=== PATIENT | male | born 1950 | race Caucasian/White ===

== ENCOUNTER 2018-02-13 13:25 | Inpatient (IN) | payer MEDICARE ==
[2018-02-13 13:49] LABS: #Basophils 0.1 thou/uL (0.0-0.2); #Eosinphils 0.5 thou/uL (0.0-0.7); #Lymphocytes 2.5 thou/uL (1.20-3.40); #Neutrophils 7.6 thou/uL (1.40-6.50); %Basophils 0.9 % (0.0-1.0); %Eosinophils 4.1 % (0.0-10.0); %Lymphocytes 21.6 % (21.0-51.0); %Monocytes 8.1 % (0.0-10.0); %Neutrophils 65.2 % (42.0-75.0); Hemoglobin 17.7 g/dL (14.0-18.0); Mean Corpuscular HGB CONC 34.4 g/dL (32.0-36.0); Mean Corpuscular Hemoglobin 32.8 pg (27.0-31.0); Mean Corpuscular Volume 95.3 fl (80.0-94.0); Mean Platelet Volume 6.8 fL (7.4-10.4); Platelet Count 297 thou/uL (130-400); RBC Distribution Width 11.1 % (11.5-14.5); Red Blood Cell (RBC) Count 5.38 mill/uL (4.70-6.10); White Blood Cell (WBC) Count 11.7 thou/uL (4.8-10.8)
[2018-02-13] MEDS ORDERED: Metoprolol Tartrate 5 MG/5 ML VIAL ONE ×2 (13:51→14:34)
[2018-02-13 14:22] LABS: CKMB 8.8 ng/mL (0-6.6); Troponin I 0.516 ng/mL (< 0.028)
--- NOTE | 2018-02-13 14:25 | RAD ---
PA AND LATERAL CHEST: Date: 02/13/18 HISTORY: Chest pain since this morning. FINDINGS: Heart size is within normal limits. It is difficult to visualize the exact location, but there may be a right-sided aortic arch present. The lungs are clear of infiltrative process. There are arthritic changes of the spine. IMPRESSION: Suggestion that there is a right-sided aortic arch. The stomach appears to be in normal position. POS: [facility]
--- NOTE | 2018-02-13 16:33 | PDOC.FPRHP ---
- History of Present Illness Chief Complaint: Chest pain, SOB History of Present Illness: Jackson Galeas is a 67 year old M with a PMH of HTN and depression who presented to ED from home for acute onset chest pain. Patient is a poor historian because he chooses not to answer many questions and when he does, his answer lack detail. He says the pain is in the center of his chest, initially says he cannot describe the pain, but later states its pressure like. Chest pain occurred Pain was associated with diaphoresis and dizziness at its onset. No nausea, no radiation of pain. No vision changes, headache, pre-syncope, lightheadedness. He states that the pain was improved with the medicines given to him in the ED. He denies any palpitations. He denies any other complaints at this time. States he has a family history of MIs, but stated that he has no history of heart issues. Apparently had a cardiac stress test approximately 3 years ago and that was negative. ED Course: Metoprolol 5mg IVP x2, NS 500mL - Allergies/Adverse Reactions Allergies Allergy/AdvReac Type Severity Reaction Status Date / Time No Known Allergies Allergy Verified 02/13/18 17:42 - Home Medications Medication Instructions Recorded Confirmed Type FLUoxetine HCl 20 mg PO DAILY 02/13/18 02/13/18 History Lisinopril/Hydrochlorothiazide 1 tablet PO DAILY 02/13/18 02/13/18 History [Lisinopril-Hctz 20-12.5 mg Tab] Meloxicam [Mobic] 15 mg PO DAILY 02/13/18 02/13/18 History - History PMHx: HTN, Depression PSHx: No past surgical history FHx: heart disease in father and brother Social: Denies any recent alcohol use, denies drug use, states that he has a history of smoking but does not currently smoke - Review of Systems General: reports: other (diaphoresis). denies: fever/chills, weight/appetite/ sleep changes, night sweats, fatigue Eyes: denies: eye pain, vision changes ENT: denies: nasal congestion, rhinorrhea Respiratory: reports: shortness of breath. denies: cough, congestion, exercise intolerance Cardiovascular: reports: chest pain, palpitation. denies: edema, paroxysmal nocturnal dyspnea, orthopnea Gastrointestinal: denies: nausea, vomiting, diarrhea, constipation, abdominal pain, GI bleeding Genitourinary: denies: dysuria, polyuria Skin: denies: rashes, jaundice Musculoskeletal: denies: pain, stiffness, arthritis/arthralgias Neurological: denies: numbness, syncope, seizure, weakness Psychological: reports: depression. denies: anxiety - Vital signs BP: 116/66 HR: 101 RR: 16 Tmax: 97.6 Pox: 96% on RA Wt: 111Kg - Physical Exam Constitutional: NAD, awake, alert and oriented, well developed HEENT: normocephalic and atraumatic, PERRLA, EOMI, conjunctiva clear, no scleral icterus, grossly normal vision, TM's clear and intact, grossly normal hearing, normal nasal mucosa, MMM, oropharynx clear Neck: supple, FROM, trachea midline, no LAD, no JVD Chest: no-tender to palpation Heart: RRR, normal S1/S2, no murmurs/rubs/gallops, pulses present, no edema Lungs: CTAB, no respiratory distress, good air movement, no rales/rhonchi Abdomen: soft, non-tender, bowel sounds present Musculoskeletal: normal structure, normal tone, ROM grossly normal Neurological: no focal deficit, CN II-XII intact, normal sensation Skin: no rash/lesions, good turgor, capillary refill <2 seconds Heme/Lymphatic: no unusual bruising or bleeding, no purpura, no petechia Psychiatric: intact recent and remote memory -Psychiatric: short-tempered and confrontational FMR H&P: Results - Labs Result Diagrams: 02/13/18 13:43 02/13/18 13:43 Lab results: WBC 11.7 thou/uL (4.8-10.8) H 02/13/18 13:43 Hgb 17.7 g/dL (14.0-18.0) 02/13/18 13:43 Hct 51.3 % (42.0-52.0) 02/13/18 13:43 MCV 95.3 fl (80.0-94.0) H 02/13/18 13:43 Plt Count 297 thou/uL (130-400) 02/13/18 13:43 Neutrophils % 65.2 % (42.0-75.0) 02/13/18 13:43 Creatine Kinase 236 U/L (30-200) H 02/13/18 13:43 CK-MB (CK-2) 8.8 ng/mL (0-6.6) H* 02/13/18 13:43 B-Natriuretic Peptide 88.9 pg/mL (0-100) 02/13/18 13:43 Lipase 34 U/L (8-78) 02/13/18 13:43 - EKG Interpretation EKG: Initial EKG showed atrial fibrillation with rapid ventricular rate of 145, complete RBBB FMR H&P: A/P - Problem List (1) A-fib Current Visit: Yes Status: Acute Code(s): I48.91 - UNSPECIFIED ATRIAL FIBRILLATION (2) NSTEMI (non-ST elevated myocardial infarction) Current Visit: Yes Status: Acute Code(s): I21.4 - NON-ST ELEVATION (NSTEMI) MYOCARDIAL INFARCTION (3) HTN (hypertension) Current Visit: Yes Status: Chronic Code(s): I10 - ESSENTIAL (PRIMARY) HYPERTENSION (4) Elevated blood sugar Current Visit: Yes Status: Acute Code(s): R73.9 - HYPERGLYCEMIA, UNSPECIFIED (5) Transaminitis Current Visit: Yes Status: Acute Code(s): R74.0 - NONSPEC ELEV OF LEVELS OF TRANSAMNS & LACTIC ACID DEHYDRGNSE (6) Mood disorder Current Visit: Yes Status: Chronic Code(s): F39 - UNSPECIFIED MOOD [ AFFECTIVE] DISORDER - Plan (1) New onset Atrial Fibrillation with RVR: - Admit to tele for continuous cardiac monitoring - S/p 2 doses of 5 mg metoprolol in ED achieving control of HR - Cardiology, Dr. Hawley consulted, appreciate recs - Dr. Hawley started pt on diltiazem ggt for HR control (2) NSTEMI - Therapeutic lovenox has been started - Initial troponin was 0.516, second troponin was 3.188 - Discussed rise with Dr. Hawley, stated patient declined cardiac cath, despite recommendation - Will continue medical management with lovenox, asa, and statin - Cardiolyte stress ordered for AM, as well as Echo (3) HTN: - continue to monitor - controlled at this time (4) Elevated blood sugar without diagnosis of DM - Check HgA1c - SSI - accuchecks (5) Mood disorder - Patient appeared short tempered and stated he often has outbursts of anger when initially interviewed patient - Cont home prozac - patient declined sitter CODE STATUS: FULL CODE Disposition/LOS: Admit to Telemetry. Anticipate discharge home after hospital admission likely > 48 hr FMR H&P: Upper Level - Pertinent history Patient is a 67yo CM with PMHx of HTN who presents with chest pain. States it occurred suddenly this AM while working out in the yard. Associated with diaphoresis, shortness of breath and dizziness. Denies any DIEGO, N/V, vision changes. Pt initially presented to PCP but instructed him to go to the ED and take 3 ASA, which he did. ED: metoprolol tartrate 5mg IV x2, 500mL NS bolus - Pertinent findings T 97.6 BP 108/71 HR 142 RR 18 O2 97.6% on RA Wt 111kg Gen: NAD, resting in bed Heart: irregularly irregular Lungs: CTAB Ext: maew Troponin: 0.5163.188 CK-MB: 8.8 22.6 D-dimer: 0.67 BNP: 88.9 EKG: Afib w/ RVR, RBBB CTA: negative - Plan Date/Time: 02/13/18 1631 1. New onset Afib w/ RVR: Patient given 2 doses of metoprolol in the ED with control of heart rate. Dr. Hawley was consulted from the ED and has since started him on dilt gtt with heart rate in the 80s. Continues to remain in afib. Cont to monitor on tele. Cont dilt. 2. NSTEMI: Patient with rising cardiac enzymes though he is asymptomatic and denies any chest pain. Touch based with Dr. Hawley due to acute rise in cardiac enzymes who does not recommend any change in management. Cont therapeutic lovenox. Recommend cardiac cath but pt declined. Thus, plan for stress in the AM. Echo, A1c and FLP panel pending. Cont ASA and statin. 3. HTN: well-controlled. Hold home Lisinopril/hctz. 4. Elevated glucose: obtain A1c. SSI 5. Transaminitis: obtain hep panel. Monitor. 6. Anxiety/Depression/Mood disorder: cont home Prozac 7. Diet: HH/NPO at [place] 8. PPx: th lovenox 9. Code Status: Full I, Carol Dickerson, have evaluated this patient and agree with findings/ plan as outlined by international recruiter resident. Pertinent changes/additions are listed here. Attending Addendum - Attending Addendum Date/Time: 02/13/181929 I personally evaluated the patient and discussed the management with Dr. Aquino and Dr. Dickerson I agree with the History, Examination, Assessment and Plan documented above with any addition or exceptions noted below. 67 yo male admitted for chest pain and found to have a. fib with RVR and NSTEMI vs demand. Patient at present chest pain free. Rate is controlled. Has no other complaints. Cardiology has seen and evaluated patient from ED. Will continue their plans. No ischemic changes noted on EKG. Will trend enzymes and EKG as needed. Treat symptoms. Continue CCB drip and therapeutic Lovenox. Will notify cards of any changes overnight. Lady
[2018-02-13 16:44] LABS: ALT (SGPT) 57 U/L (8-55); AST (SGOT) 39 U/L (5-34); Albumin 4.1 g/dL (3.4-4.8); Alkaline Phosphatase 109 U/L (40-150); Anion Gap 18 mmol/L (10-20); BUN (Urea Nitrogen) 33 mg/dL (8.4-25.7); Bilirubin, Total 0.5 mg/dL (0.2-1.2); Calc. Creatinine Clearance 0 mL/min (70-130); Calcium 9.7 mg/dL (7.8-10.44); Carbon Dioxide 16 mmol/L (23-31); Chloride 105 mmol/L (98-107); Estimated GFR-MDRD 57; Globulin 3.2 g/dL (2.4-3.5); Glucose 245 mg/dL (80-115); Potassium 3.7 mmol/L (3.5-5.1); Protein, Total 7.3 g/dL (5.8-8.1); Sodium 135 mmol/L (136-145)
[2018-02-13] MEDS ORDERED: Ondansetron HCl/PF 4 MG/2 ML Vial IVP PRN (16:57)
[2018-02-13] MEDS ORDERED: Ondansetron ODT 4 MG TAB SL PRN (16:57)
[2018-02-13] MEDS ORDERED: HumaLOG 300 UNITS/3 ML VIAL SC PRN (17:31)
[2018-02-13] MEDS ORDERED: Ondansetron ODT 4 MG TAB PO PRN (17:31)
[2018-02-13] MEDS ORDERED: Acetaminophen 325 MG TAB PO PRN (17:31)
[2018-02-13] MEDS ORDERED: Dextrose 50% Abboject 50 ML SYRINGE SLOW IVP PRN (17:31)
[2018-02-13] MEDS ORDERED: Dextrose 5% in Water 1,000 ML IV PRN (17:31)
--- NOTE | 2018-02-13 17:56 | CT ---
CTA OF THE CHEST WITH CONTRAST 02/13/18 COMPARISON: None. HISTORY: Chest pain. TECHNIQUE: Multiple contiguous axial images were obtained in a CTA of the chest with contrast per pulmonary embo lism protocol. 3D oblique MIP reformats and direct coronal reformats were performed. FINDINGS: The pulmonary arteries are well opacified without filling defects to suggest pulmonary emboli. The he art is normal in size without focal cardiac abnormality. The patient has a right sided aortic arch wh ich courses posterior to the trachea and esophagus. The left internal carotid artery is seen in the a nterior mediastinum. The left subclavian artery emanates from the aorta in the left posterior mediast inum. The right subclavian and common carotid arteries come off the aortic arch along the right near the apex. No focal infiltrates are seen in the lungs. No pneumothorax or pleural effusion are seen. No suspicio us pulmonary nodules are present. The visualized subdiaphragmatic structures are unremarkable. Degenerative changes are seen in the spi ne. IMPRESSION: 1. No evidence of pulmonary thromboembolism. 2. 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 POS: [facility]
[2018-02-13 18:26] LABS: CKMB 22.6 ng/mL (0-6.6); Troponin I 3.188 ng/mL (< 0.028)
[2018-02-13] MEDS ORDERED: Diltiazem 125 MG in Sodium Chloride 0.9% 100 ML IVPB SCH (18:30)
[2018-02-13 18:50] LABS: HBSAB Concentration 0.78 mIU/mL; HBSAg Index 0.17 S/CO (0-0.99); Hep B Surf AB Non-Reactive (NonReactive); Hep B Surf Ag Non-Reactive S/CO (NonReactive)
[2018-02-13] MEDS ORDERED: Enoxaparin Sodium 120 MG/0.8 ML SYRINGE SC SCH (19:00)
[2018-02-13] MEDS: Famotidine 20 MG TAB PO SCH (20:34)
[2018-02-13] MEDS ORDERED: Metoprolol Tartrate 25 MG TAB PO SCH (21:00)
[2018-02-13] MEDS ORDERED: Atorvastatin Calcium 40 MG TAB PO SCH (21:00)
--- NOTE | 2018-02-13 21:13 | CON ---
DATE OF CONSULT: 02/13/18 HISTORY OF PRESENT ILLNESS: The patient is a 67-year-old gentleman who presented with chest pain and palpitations. The patient has no previous cardiac history. He has a strong family history of coronary artery disease. He states he underwent a cardiac evaluation including stress testing approximately 3 years ago, which was unremarkable. The patient was in his usual state of health until today when he developed palpitations and right- sided chest discomfort. He presented to the emergency room with a rapid heart rate. The patient denies having any present chest discomfort. PAST MEDICAL HISTORY: Hypertension. PAST SURGICAL HISTORY: None. SOCIAL HISTORY: Nonsmoker. ALLERGIES: No known drug allergies. FAMILY HISTORY: There is a very strong family history of coronary artery disease. MEDICATIONS: Lisinopril/hydrochlorothiazide 20/12.5 daily, Meloxicam 15 daily, and Prozac 20 daily. REVIEW OF SYSTEMS: Ten-point system otherwise unremarkable. PHYSICAL EXAMINATION: GENERAL: Obese gentleman in no acute distress. VITAL SIGNS: Blood pressure 126/81. NECK: Showed no jugular distention. LUNGS: Clear to auscultation. HEART: Irregular rate and rhythm, normal S1, S2. U/ systolic murmur. ABDOMEN: Distended. EXTREMITIES: Showed trace edema. SKIN: Warm and dry. NEUROLOGIC: Nonfocal. VASCULAR: Radial pulses are 2+. LABORATORY DATA: Sodium 135, potassium 3.7, chloride 105, bicarbonate 16, BUN 33, creatinine 1.26, glucose 245. His white blood count 11.7, hemoglobin 17.7, hematocrit 51.3, platelets are 297. EKG revealed atrial fibrillation with a right bundle branch block, and an ST-T wave abnormality suggestive of ischemia. IMPRESSION: 1. Chest pain. 2. New onset atrial fibrillation. 3. Non-Q-wave myocardial infarction. 4. Obesity. 5. Hyperglycemia. 6. Strong family history of coronary artery disease. This gentleman presents with rapid atrial fibrillation and chest discomfort. His troponin level suggestive non-Q-wave myocardial infarction. With his multiple risk factors, I am concerned he has significant coronary artery disease. I have recommended proceeding to cardiac catheterization. The patient declines and states he prefers to undergo stress testing. The patient will undergo this procedure tomorrow. If there is any evidence of ischemia, I would again highly recommended he proceed with invasive evaluation. The patient will be treated with aspirin, Lovenox, lipid lowering medication. We will check the patient's A1c to see if there is evidence of diabetes. I may recommended the patient undergo electrical cardioversion if he remains in atrial fibrillation. We will follow this patient with you through his hospitalization. Further recommendations to follow. ZEND
[2018-02-13 21:38] LABS: CKMB 27.9 ng/mL (0-6.6); Troponin I 5.918 ng/mL (< 0.028)
[2018-02-14 00:33] LABS: CKMB 28.5 ng/mL (0-6.6); Troponin I 8.725 ng/mL (< 0.028)
--- NOTE | 2018-02-14 00:59 | PDOC.EVN ---
Addendum entered and electronically signed by Cristino Aquino MD 02/14/18 01:13: Correction: Dr. Hawley with cardiology contacted. Original Note: Event Note - Event Note Event Note: Event note for events from 1900 on 02/13/18 to 0100 on 02/14/18: Initial troponin on admission was 0.516. Trended q3h troponins. Troponins continued to rise to 3.188, 5.918, 8.725 Dr. Vences, Cardiology, was contacted after initial trop rise to 3.188. Discussed case with Dr. Vences. He stated that patient had benefits and risks of Cardiac cath explained and patient declined cardiac cath. After second rise to 5.918, stat EKG was ordered and immediately reviewed. EKG showed A fib with rate in 60s. RBBB was unchanged from previous EKGs. There were no new ST changes or signs of ischemia. Patient has denies chest pain since admission. Residents paged after troponin rising to 8.725. RN states that patient has continued to deny any chest pain. Ordered Timed EKG for morning lab draw and also ordered repeat cardiac enzymes for morning draw. Requested that RN page residents if patient ever has recurrence of chest pain that was present on admission. Will continue to follow closely. Patient is scheduled for cardiolyte stress test in the morning. Will continue therapeutic lovenox, aspirin, and statin and continuous cardiac monitoring as recommended by cardiology. <Cristino Aquino - Last Filed: 02/14/18 00:57> Attending Addendum - Attending Addendum Date/Time: 02/14/18 0245 I personally evaluated the patient and discussed the management with Dr. Aquino I agree with the History, Examination, Assessment and Plan documented above with any addition or exceptions noted below. Repeat EKG still without signs of ischemia. Remains pain free. Will continue to monitor for ischemia. Presumed demand at this time with stress in AM unless otherwise indicated by progressive changes. Lady <Janelle Cano - Last Filed: 02/14/18 02:47>
[2018-02-14 05:22] LABS: #Basophils 0.1 thou/uL (0.0-0.2); #Eosinphils 0.5 thou/uL (0.0-0.7); #Lymphocytes 2.7 thou/uL (1.20-3.40); #Monocytes 1.2 thou/uL (0.11-0.59); #Neutrophils 5.4 thou/uL (1.40-6.50); %Eosinophils 5.5 % (0.0-10.0); %Monocytes 11.9 % (0.0-10.0); %Neutrophils 54.6 % (42.0-75.0); Hemoglobin 15.2 g/dL (14.0-18.0); Mean Corpuscular HGB CONC 33.8 g/dL (32.0-36.0); Mean Corpuscular Hemoglobin 32.9 pg (27.0-31.0); Mean Corpuscular Volume 97.5 fl (80.0-94.0); Mean Platelet Volume 7.2 fL (7.4-10.4); Platelet Count 263 thou/uL (130-400); RBC Distribution Width 11.4 % (11.5-14.5); Red Blood Cell (RBC) Count 4.62 mill/uL (4.70-6.10); White Blood Cell (WBC) Count 9.9 thou/uL (4.8-10.8)
[2018-02-14 05:41] LABS: Anion Gap 12 mmol/L (10-20); BUN (Urea Nitrogen) 28 mg/dL (8.4-25.7); Calc. Creatinine Clearance 117 mL/min (70-130); Calcium 8.9 mg/dL (7.8-10.44); Carbon Dioxide 22 mmol/L (23-31); Cardiac Risk 3.8 (Less than 4.5); Chloride 107 mmol/L (98-107); Cholesterol 152 mg/dl (< 200 Desired); Estimated GFR-MDRD 76; Glucose 104 mg/dL (80-115); HDL Cholesterol 40 mg/dL (>60 Neg Risk); LDL Cholesterol, Calculated 92 mg/dL; Magnesium 2.1 mg/dL (1.6-2.6); Phosphorus 3.2 mg/dL (2.3-4.7); Potassium 3.8 mmol/L (3.5-5.1); Sodium 137 mmol/L (136-145); Triglycerides 100 mg/dL (Less than 150)
[2018-02-14 05:44] LABS: CKMB 29.4 ng/mL (0-6.6)
--- NOTE | 2018-02-14 06:29 | PDOC.FM ---
- Subjective Subjective: Patient doing well this AM. No significant overnight events. Patient denies chest pain or shortness of breath this AM. After discussion regarding cath vs. stress test, patient decided he would like to go through with cardiac catheterization. I verified that he would like to proceed with cardiac cath three times during conversation. Dr. Hawley was notified, and there are plans to take pt back to cath this AM. - Objective MAR Reviewed: Yes Vital Signs & Weight: Vital Signs (12 hours) Temp Pulse Resp BP Pulse Ox 02/14/18 04:00 98.4 F 64 18 98/61 96 02/14/18 00:00 86 20 103/53 L 02/13/18 20:00 97.9 F 87 20 111/68 94 L 02/13/18 19:36 98.7 F 94 18 02/13/18 19:12 98.7 F 94 18 136/82 96 Weight Weight 109.316 kg Result Diagrams: 02/14/18 04:34 02/14/18 04:34 EKG Reviewed by me: Yes Radiology Reviewed by me: Yes <Alina Chacon - Last Filed: 02/14/18 09:11> - Objective Vital Signs & Weight: Vital Signs (12 hours) Temp Pulse Resp BP Pulse Ox 02/17/18 08:00 97.5 F L 73 20 118/74 91 L 02/17/18 04:00 98.1 F 76 20 145/86 H 92 L 02/17/18 00:19 93 L 02/17/18 00:00 98.4 F 83 18 145/77 H 92 L Weight Weight 117.571 kg Most Recent Monitor Data Heart Rate from ECG 90 NIBP 132/77 NIBP BP-Mean 124 Respiration from ECG 25 SpO2 92 I&O: 02/16/18 02/17/18 02/18/18 06:59 06:59 06:59 Intake Total 1650 Output Total 2155 1315 Balance -505 -1315 Result Diagrams: 02/17/18 04:37 02/17/18 04:37 <Storm Herman - Last Filed: 02/17/18 09:51> Phys Exam - Physical Examination Constitutional: NAD HEENT: moist MMs, sclera anicteric Neck: supple Respiratory: no wheezing, clear to auscultation bilateral atrial fibrillation Gastrointestinal: soft, no distention Musculoskeletal: no edema, pulses present Neurological: non-focal, moves all 4 limbs Psychiatric: A&O x 3 Deviation from normal: Abrasive Skin: no rash, cap refill <2 seconds <Alina Chacon - Last Filed: 02/14/18 09:11> Dx/Plan (1) NSTEMI (non-ST elevated myocardial infarction) Code(s): I21.4 - NON-ST ELEVATION (NSTEMI) MYOCARDIAL INFARCTION Status: Acute (2) A-fib Code(s): I48.91 - UNSPECIFIED ATRIAL FIBRILLATION Status: Acute (3) Transaminitis Code(s): R74.0 - NONSPEC ELEV OF LEVELS OF TRANSAMNS & LACTIC ACID DEHYDRGNSE Status: Acute (4) Elevated blood sugar Code(s): R73.9 - HYPERGLYCEMIA, UNSPECIFIED Status: Acute (5) HTN (hypertension) Code(s): I10 - ESSENTIAL (PRIMARY) HYPERTENSION Status: Chronic - Plan Plan: (1) New onset Atrial Fibrillation with RVR: - Admit to tele for continuous cardiac monitoring - S/p 2 doses of 5 mg metoprolol in ED achieving control of HR - Cardiology, Dr. Hawley consulted, appreciate recs - Dr. Hawley started pt on diltiazem ggt for HR control - HR controlled over night; still in a-fib (2) NSTEMI: - Therapeutic lovenox has been started - Initial troponin was 0.516, second troponin was 3.188 --> 5.9, 8.7, 8.2; cardiology was called regarding trops, stat EKG did not show any acute changes, pt asymptomatic - Discussed rise with Dr. Hawley, stated patient declined cardiac cath despite recommendation - Will continue medical management with asa and statin - Echo pending - Patient has agreed to have cardiac cath this AM; plans are in place to get pt on schedule; stress test cancelled (3) HTN: - continue to monitor - controlled at this time (4) Elevated blood sugar without diagnosis of DM - HgA1c 6.0 - SSI - accuchecks (5) Mood disorder: - Patient appeared short tempered and stated he often has outbursts of anger when initially interviewed patient - Cont home prozac CODE STATUS: FULL CODE DVT PPX: Th Lovenox Dispo: Pt stable. Plan for cardiac cath this AM. <Alina Chacon - Last Filed: 02/14/18 09:11> Attending Addendum - Attending Addendum Date/Time: 02/17/1851 I personally evaluated the patient and discussed the management with Dr. Chacon on 02/14/2018. I agree with the History, Examination, Assessment and Plan documented above with any addition or exceptions noted below. <Storm Herman - Last Filed: 02/17/18 09:51>
[2018-02-14] MEDS ORDERED: FLUoxetine HCl 20 MG CAP PO SCH (09:00)
[2018-02-14] MEDS ORDERED: Aspirin 325 MG TAB PO SCH (09:00)
[2018-02-14] MEDS: Famotidine 20 MG TAB PO SCH (09:12)
[2018-02-14] MEDS ORDERED: Lidocaine 1% (PF) 30 ML VIAL ONE (09:30)
[2018-02-14] MEDS ORDERED: Heparin 10,000 UNITS/1 ML VIAL ONE (09:30)
[2018-02-14] MEDS ORDERED: Fentanyl 100 MCG/2 ML VIAL ONE (10:14)
[2018-02-14] MEDS ORDERED: Midazolam HCl 2 mg/2 ml Vial ONE (10:14)
[2018-02-14] MEDS ORDERED: Ondansetron HCl/PF 4 MG/2 ML Vial ONE (11:17)
[2018-02-14] MEDS ORDERED: Amiodarone HCl 450 MG, Admixture Fee 1 EACH in Dextrose 5% in Water 250 ML IVPB SCH (11:45)
[2018-02-14] MEDS ORDERED: Heparin 10,000 UNITS/1 ML VIAL 30,000 UNITS in Sodium Chloride 0.9% 1,000 ML FS SCH (13:00)
[2018-02-14] MEDS ORDERED: Fentanyl 250 MCG/5 ML VIAL ONE (13:38)
[2018-02-14] MEDS ORDERED: Midazolam HCl 5 mg/5 ml Vial ONE (13:38)
[2018-02-14] MEDS ORDERED: Sodium Chloride 0.9% 20 ML ONE (13:45)
[2018-02-14] MEDS ORDERED: Cardioplegic Soln 1,000 ML BAG ONE (13:54)
[2018-02-14] MEDS ORDERED: Thrombin 5000 UNITS/5 ML VIAL ONE (13:54)
[2018-02-14] MEDS ORDERED: Glycopyrrolate 0.2 MG/ML 5 ML SYRINGE ONE (13:54)
[2018-02-14] MEDS ORDERED: Papaverine 60 MG/2 ML VIAL ONE (13:54)
[2018-02-14] MEDS ORDERED: Lidocaine 1% PF 5 ML VIAL ONE (13:54)
[2018-02-14] MEDS ORDERED: Calcium Chloride 1 GM/10 ML Abboject SYRINGE ONE (13:54)
[2018-02-14] MEDS ORDERED: Heparin 5,000 UNITS/ML VIAL ONE (13:54)
[2018-02-14] MEDS ORDERED: PROPOFOL 200 MG/20 ML VIAL ONE (13:54)
[2018-02-14] MEDS ORDERED: Sodium Bicarb 50 MEQ/50 ML Abboject 8.4% SYRINGE ONE (13:54)
[2018-02-14] MEDS ORDERED: Vecuronium 10 MG VIAL ONE (13:54)
[2018-02-14] MEDS ORDERED: Heparin 30,000 units/30 ml VIAL ONE (13:54)
[2018-02-14] MEDS ORDERED: Protamine Sulfate 250 MG/25 ML VIAL ONE (13:54)
[2018-02-14] MEDS ORDERED: PHENYLEPHRINE-NS 100 MCG/ML 10 ML SYRINGE ONE ×2 (13:54→15:04)
[2018-02-14] MEDS ORDERED: ePHEDrine/0.9% NaCl/PF SYRINGE 50 mg/10 ml ONE (13:54)
--- NOTE | 2018-02-14 14:09 | CON ---
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 He presented to the emergency department with chest pain, palpitations. His troponin was positive. He suffered a NSTMI. He went into atrial fibrillation after admission. He has been managed on amiodarone and is currently in sinus rhythm with a rate of 55 and a pressure of 138/60. He underwent cardiac catheterization today revealing severe 3-vessel disease. I have been asked to see him to plan coronary artery bypass grafting. PAST MEDICAL HISTORY: Hypertension. PAST SURGICAL HISTORY: None. SOCIAL HISTORY: He does not use tobacco or alcohol. 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 He is and has 2 daughters. CURRENT MEDICATIONS: 1. Lisinopril/hydrochlorothiazide 20/12.5 daily. 2. Meloxicam 15 mg every day. 3. Prozac 20 mg every day. ALLERGIES: None. REVIEW OF SYSTEMS: Ten-point review of systems is performed and is negative except as above. PHYSICAL EXAMINATION: GENERAL: This is a well-developed, well-nourished man resting comfortably in the Intensive Care Unit. VITAL SIGNS: Temperature is 97.7, pulse is 58 and regular, blood pressure 130/ 57, oxygen saturations 100% on room air, height 5 foot 10 inches, weight 241 pounds, BSA is 2.32. HEENT: Sclerae nonicteric. Pupils equal, round bilaterally. NECK: Supple, without adenopathy. No carotid bruit. CHEST: Clear bilaterally. HEART: Rhythm is regular, without murmur. ABDOMEN: Soft and nontender. EXTREMITIES: No edema. VASCULAR: He has palpable carotid, radial, femoral and dorsalis pedis pulses bilaterally. He has an arterial sheath in the right groin. VENOUS: There are no venous varicosities or venous stasis changes. PSYCHIATRIC: The patient is awake, oriented to person, place, and time. Catheterization films have been reviewed. He has significant LAD, diagonal, OM and right coronary artery disease. He has no lung mass on chest x-ray. Lungs are fully expanded. ASSESSMENT AND PLAN: This is a very pleasant 67-year-old gentleman with critical 3-vessel disease and preserved left ventricular function. We discussed coronary artery bypass grafting in an urgent fashion. He is agreeable to proceed. [facility]Jean
[2018-02-14] MEDS ORDERED: Phenylephrine 0.25% Nasal Spray 15 ML BOT ONE (15:03)
[2018-02-14] MEDS ORDERED: Phenylephrine 1% Nasal Spray 15 ML BOT ONE ×2 (15:03)
[2018-02-14] MEDS ORDERED: Iopamidol 370 76% 100 ML VIAL ONE (15:27)
[2018-02-14] MEDS ORDERED: Albumin 5% 500 ML ONE (15:35)
[2018-02-14] MEDS ORDERED: Bisacodyl 5 MG TAB PO PRN (18:14)
[2018-02-14] MEDS ORDERED: Mag-Al 1200 mg/1200 mg/30 ML UDCUP PO PRN (18:14)
[2018-02-14] MEDS ORDERED: Fentanyl 100 MCG/2 ML VIAL SLOW IVP PRN (18:14)
[2018-02-14] MEDS ORDERED: Norepinephrine 8 MG/0.9% NS 250 ML IVPB PRN (18:14)
[2018-02-14] MEDS ORDERED: Post-Op Insulin Drip Protocol IVPB SCH (18:14)
[2018-02-14] MEDS ORDERED: Hetastarch 6% 500 ML 500 ML IVPB PRN (18:14)
[2018-02-14] MEDS ORDERED: hydrALAZINE 20 MG/ML VIAL SLOW IVP PRN (18:14)
[2018-02-14] MEDS ORDERED: Guaifenesin DM 100-10/5 ML UDCUP PO PRN (18:14)
[2018-02-14] MEDS ORDERED: Acetaminophen 325 MG TAB PO PRN (18:14)
[2018-02-14] MEDS ORDERED: Bisacodyl 10 MG SUPP PR PRN (18:14)
[2018-02-14] MEDS ORDERED: HYDROcodone/Acetaminophen 5/325 mg Tablet PO PRN (18:14)
[2018-02-14] MEDS ORDERED: Morphine 4 MG/ML VIAL SLOW IVP PRN (18:14)
[2018-02-14] MEDS ORDERED: Nitroglycerin 50 MG/250 ML BOT 250 ML IVPB PRN (18:14)
[2018-02-14] MEDS ORDERED: Promethazine HCl 25 MG/ML VIAL IM PRN (18:14)
[2018-02-14] MEDS ORDERED: Potassium Chloride 20 MEQ/100 ML PREMIX BAG IVPB PRN (18:14)
[2018-02-14] MEDS ORDERED: Ondansetron HCl/PF 4 MG/2 ML Vial IVP PRN (18:14)
[2018-02-14] MEDS ORDERED: D5 1/2 NS w/20 mEq KCL 1,000 ML IV SCH (18:15)
[2018-02-14] MEDS ORDERED: Magnesium 2 GM/NS 0.9% 100 ML 2 GM in Premix Bag 1 BAG IVPB SCH (18:15)
[2018-02-14] MEDS ORDERED: Dextrose 5% in Water 1,000 ML IV PRN (18:18)
[2018-02-14] MEDS ORDERED: Insulin Regular 300 UNITS/3 ML VIAL SC PRN (18:18)
[2018-02-14] MEDS ORDERED: Dextrose 50% Abboject 50 ML SYRINGE SLOW IVP PRN (18:18)
[2018-02-14 18:36] LABS: Actual Bicarbonate (HCO3a) 21.4 mEq/L (22-26); Base Excess (BEa) -3.9 mEq/L (0 (+/-) 2.5); CO2 Tension 39.9 mmHg (35.0-45.0); O2 Tension (PaO2) 136.7 mmHg (80.0-100.0); pH, Arterial 7.35 (7.35-7.45)
[2018-02-14 18:37] LABS: Calcium, Ionized 1.3 mmol/L (1.12-1.30); Hematocrit-ABG 31.7 % (42.0-52.0); Puncture Site LINE
[2018-02-14 18:38] LABS: ALV-art Gradient 167.425 (0-20)
[2018-02-14 18:43] LABS: Hemoglobin 13.1 g/dL (14.0-18.0); Mean Corpuscular HGB CONC 33.7 g/dL (32.0-36.0); Mean Corpuscular Hemoglobin 32.7 pg (27.0-31.0); Mean Corpuscular Volume 97.1 fl (80.0-94.0); Mean Platelet Volume 6.9 fL (7.4-10.4); Platelet Count 175 thou/uL (130-400); RBC Distribution Width 11.4 % (11.5-14.5); White Blood Cell (WBC) Count 24.5 thou/uL (4.8-10.8)
[2018-02-14 18:44] LABS: INR-International Normal Ratio 1.4; Prothrombin Time 17.9 SEC (12.0-14.7)
--- NOTE | 2018-02-14 18:47 | RAD ---
PORTABLE SUPINE CHEST: 02/14/18 HISTORY: Postop sternotomy followup. Postop sternotomy changes are noted. ET tube is in place with tip above kristopher. A central line has ti p overlying the right atrium. Chest drainage tubes. Cardiomegaly and mild vascular engorgement. No ev idence of consolidation or infiltrate. No significant effusion. No evidence of edema. IMPRESSION: Postoperative changes noted. No acute lung process. POS: [facility]
[2018-02-14] MEDS: CEFAZOLIN/Water 2 GM/20 ML SYRINGE SLOW IVP SCH (18:53)
[2018-02-14 19:01] LABS: Anion Gap 11 mmol/L (10-20); BUN (Urea Nitrogen) 24 mg/dL (8.4-25.7); Calc. Creatinine Clearance 124 mL/min (70-130); Calcium 8.6 mg/dL (7.8-10.44); Carbon Dioxide 21 mmol/L (23-31); Chloride 110 mmol/L (98-107); Estimated GFR-MDRD 83; Glucose 168 mg/dL (80-115); Potassium 4.5 mmol/L (3.5-5.1); Sodium 137 mmol/L (136-145)
[2018-02-14 19:12] LABS: Band 17 % (5-11); Eosinophils 1 % (0-10); Lymphocytes 10 % (21-51); MDiff Complete? YES; Monocytes 4 % (0-10); Neutrophil 68 % (42-75); PLT Morphology Comment Appears Adequate; RBC Morphology Normal
[2018-02-14] MEDS: Famotidine/PF 20 mg/2ml Vial SLOW IVP SCH (21:17)
[2018-02-14 21:40] LABS: Actual Bicarbonate (HCO3a) 17.4 mEq/L (22-26); Base Excess (BEa) -5.5 mEq/L (0 (+/-) 2.5); CO2 Tension 27.1 mmHg (35.0-45.0); O2 Tension (PaO2) 151.3 mmHg (80.0-100.0); pH, Arterial 7.43 (7.35-7.45)
[2018-02-14 21:41] LABS: Calcium, Ionized 1.2 mmol/L (1.12-1.30); Hematocrit-ABG 37.8 % (42.0-52.0); Hemoglobin (Hb) 12.9 g/dL (14.0-18.0); Puncture Site LINE
[2018-02-14 21:42] LABS: ALV-art Gradient 98.025 (0-20)
[2018-02-14] MEDS: Fentanyl 100 MCG/2 ML VIAL SLOW IVP PRN (21:57)
--- NOTE | 2018-02-14 22:26 | OP ---
DATE OF OPERATION: 02/14/2018 PREOPERATIVE DIAGNOSES: Coronary artery disease/hypertension/status post non-ST elevation myocardial infarction. POSTOPERATIVE DIAGNOSES: Coronary artery disease/hypertension/status post non-ST elevation myocardia l infarction. PROCEDURES PERFORMED: Coronary artery bypass grafting x4: 1. Left internal mammary artery 2.0 mm LAD - good conduit and target. 2. Reverse saphenous vein to 2.0 mm D1 - conduit and target. 3. Reverse saphenous vein to 2.0 mm OM - good conduit and target. 4. Reverse saphenous vein to 2.[address] branch - good conduit and target. Note, the PDA was nonbypas sable distal to the plaque in its mid portion. SURGEON: Dr. Curt Zacarias, Dr. Rod Leahy. ANESTHESIA: General endotracheal. PUMP TIME: 71 minutes. CROSS-CLAMP TIME: 37 minutes. LOW CORE TEMP: 32-degree Celsius. PATTERNMAKER WOOD: Misty Schaeffer. DRAINS: A 24-Japanese chest tubes x2. DRIPS: None. TRANSFUSIONS: None. DESCRIPTION OF PROCEDURE: After operative consent was obtained, the patient was brought to the opera ting room and placed supine position on the operating room table. Appropriate anesthetic monitor was placed and general endotracheal anesthesia induced. Chest, abdomen, and legs were prepped and drape d in usual sterile fashion. Greater saphenous vein was harvested from the left lower extremity utili zing an endoscopic technique. Wounds were irrigated and closed in layers. Median sternotomy was per formed. Left internal mammary artery was harvested as a pedicle graft. The patient was systemically heparinized. Distal pedicle was divided and infused with papaverine. Thymic fat and pericardium we re divided with electrocautery. Pericardial stay sutures were placed. Aortic and atrial cannulation was performed. After adequate heparinization, retrograde prime was performed. The patient was plac ed on cardiopulmonary bypass. Distal targets were marked. Aortic cross-clamp was applied and antegr елена sanguinous cardioplegic arrest obtained. One liter of antegrade cold cardioplegia was given. To pical cold solution was used. Reverse saphenous vein was anastomosed to PL in end-to-side fashion wi th running 7-0 Prolene suture. Anastomosis was tested and was hemostatic. Reverse saphenous vein wa s anastomosed to the OM in end-to-side fashion with running 7-0 Prolene suture. Anastomosis was test ed and was hemostatic. Reverse saphenous vein was anastomosed to the D1 in end-to-side fashion with running 7-0 Prolene suture. Anastomosis was tested and was hemostatic. Mammary artery was brought t hrough a window in the pericardium and anastomosed to the LAD in end-to-side fashion with running 7-0 Prolene suture. On release of mammary clamps, good hooding anastomosis and good distal flow. Pedic le screw with interrupted 6-0 Prolene suture. Cross-clamp was removed and partial occluding clamp pl aced. Saphenous veins to the OM and PL branch were anastomosed individual punch sites on the aorta. Saphenous vein to the diagonal was anastomosed to the fermin of the OM graft. Partial occluding clamp was removed and grafts deaired. Anastomoses were inspected for hemostasis, which was good. The pat ient was warmed and weaned from cardiopulmonary bypass. After resumption of sinus rhythm, good hemod ynamics, temperature greater than 36.5, bypass was discontinued. Transfusions were given. A 24-Fren ch chest tubes were placed in mediastinum. Vancomycin paste was placed on the sternal edges. After adequate hemostasis had been obtained, sternum was closed with #7 wire. Sternum was treated with mary telet-rich plasma and wires twisted. Wounds were irrigated, treated with platelet-poor plasma, and c losed in multiple layers. Needle, sponge, and instrument counts were all reported as correct at the end of the procedure.
[2018-02-14] MEDS: Ketorolac Tromethamine 30 MG/ML VIAL IVP SCH (23:38)
[2018-02-15 01:00] LABS: Hemoglobin 13.1 g/dL (14.0-18.0)
[2018-02-15 01:29] LABS: Potassium 3.9 mmol/L (3.5-5.1)
[2018-02-15] MEDS: CEFAZOLIN/Water 2 GM/20 ML SYRINGE SLOW IVP SCH ×2 (01:58→09:35)
[2018-02-15 04:21] LABS: #Monocytes 1.5 thou/uL (0.11-0.59); #Neutrophils 15.1 thou/uL (1.40-6.50); %Basophils 0.1 % (0.0-1.0); %Eosinophils 0.1 % (0.0-10.0); %Lymphocytes 5.6 % (21.0-51.0); %Monocytes 8.2 % (0.0-10.0); Hemoglobin 12.8 g/dL (14.0-18.0); Mean Corpuscular HGB CONC 32.9 g/dL (32.0-36.0); Mean Corpuscular Volume 97.3 fl (80.0-94.0); Mean Platelet Volume 6.9 fL (7.4-10.4); Platelet Count 188 thou/uL (130-400); RBC Distribution Width 11.3 % (11.5-14.5); White Blood Cell (WBC) Count 17.6 thou/uL (4.8-10.8)
[2018-02-15] MEDS: Fentanyl 100 MCG/2 ML VIAL SLOW IVP PRN ×2 (04:21→09:35)
[2018-02-15 04:35] LABS: Anion Gap 10 mmol/L (10-20); BUN (Urea Nitrogen) 27 mg/dL (8.4-25.7); Calc. Creatinine Clearance 111 mL/min (70-130); Calcium 8.4 mg/dL (7.8-10.44); Carbon Dioxide 24 mmol/L (23-31); Chloride 110 mmol/L (98-107); Estimated GFR-MDRD 72; Glucose 130 mg/dL (80-115); Potassium 4.2 mmol/L (3.5-5.1); Sodium 140 mmol/L (136-145)
[2018-02-15] MEDS: Ketorolac Tromethamine 30 MG/ML VIAL IVP SCH ×4 (05:16→23:46)
[2018-02-15 06:15] LABS: Hepatitis A Total ABS Negative (Negative)
[2018-02-15] MEDS: HYDROcodone/Acetaminophen 5/325 mg Tablet PO PRN ×2 (07:43→16:27)
[2018-02-15] MEDS: Magnesium 2 GM/NS 0.9% 100 ML 2 GM in Premix Bag 1 BAG IVPB SCH (07:46)
[2018-02-15] MEDS: Famotidine/PF 20 mg/2ml Vial SLOW IVP SCH (07:48)
--- NOTE | 2018-02-15 07:51 | PDOC.FM ---
- Subjective Subjective: Patient reports he is feeling well this morning. Mild chest soreness no respiratory distress. States he slept well overnight. He denies any fevers, chills, or sweats. Patient is ready for BM this AM. - Objective Vital Signs & Weight: Vital Signs (12 hours) Temp Pulse Resp Pulse Ox 02/15/18 04:00 98.3 F 02/15/18 00:00 97.9 F 98 02/14/18 20:00 97.6 F 76 16 100 Weight Weight 112.8 kg Most Recent Monitor Data Heart Rate from ECG 89 NIBP 108/56 NIBP BP-Mean 71 Respiration from ECG 22 SpO2 95 I&O: 02/14/18 02/15/18 02/16/18 06:59 06:59 06:59 Intake Total 306.2 1441.4 Output Total 400 840 Balance -93.8 601.4 Result Diagrams: 02/15/18 04:14 02/15/18 04:14 <Bonifacio Flores - Last Filed: 02/15/18 07:49> - Objective Vital Signs & Weight: Vital Signs (12 hours) Temp Pulse Ox 02/15/18 08:00 97.7 F 02/15/18 04:00 98.3 F 02/15/18 00:00 97.9 F 98 Weight Weight 248 lb 10.903 oz Most Recent Monitor Data Heart Rate from ECG 90 NIBP 115/71 NIBP BP-Mean 88 Respiration from ECG 20 SpO2 95 I&O: 02/14/18 02/15/18 02/16/18 06:59 06:59 06:59 Intake Total 306.2 1441.4 220 Output Total 400 840 90 Balance -93.8 601.4 130 Result Diagrams: 02/15/18 04:14 02/15/18 04:14 <Vincent Bradley - Last Filed: 02/15/18 08:53> Phys Exam - Physical Examination Constitutional: NAD HEENT: PERRLA, moist MMs Respiratory: no wheezing, clear to auscultation bilateral Cardiovascular: RRR 3/6 systolic murmur, no rub no erythema at surgical site Gastrointestinal: soft, non-tender, no distention, positive bowel sounds Musculoskeletal: no edema, pulses present Neurological: moves all 4 limbs Skin: no rash, cap refill <2 seconds <Buse,Bonifacio - Last Filed: 02/15/18 07:49> Dx/Plan (1) A-fib Code(s): I48.91 - UNSPECIFIED ATRIAL FIBRILLATION Status: Acute (2) Elevated blood sugar Code(s): R73.9 - HYPERGLYCEMIA, UNSPECIFIED Status: Acute (3) NSTEMI (non-ST elevated myocardial infarction) Code(s): I21.4 - NON-ST ELEVATION (NSTEMI) MYOCARDIAL INFARCTION Status: Acute (4) Transaminitis Code(s): R74.0 - NONSPEC ELEV OF LEVELS OF TRANSAMNS & LACTIC ACID DEHYDRGNSE Status: Acute (5) HTN (hypertension) Code(s): I10 - ESSENTIAL (PRIMARY) HYPERTENSION Status: Chronic (6) Mood disorder Code(s): F39 - UNSPECIFIED MOOD [AFFECTIVE] DISORDER Status: Chronic - Plan Plan: NSTEMI, POD 1 CABG 4V - Initial troponin was 0.516, second troponin was 3.188 --> 5.9, 8.7, 8.2 - Will continue medical management with asa and statin - Echo shows EF 55-60% - 4V CABG, patient tolerated procedure well - Appreciate CV surgery, Cardiology recs New onset Atrial Fibrillation with RVR, resolved - HR well controlled overnight, sinus on tele HTN: - continue to monitor - controlled at this time Elevated blood sugar without diagnosis of DM - HgA1c 6.0 - SSI - accuchecks Mood disorder: - mood is WNL this AM, reported history of anger outbursts on admission - Cont home prozac CODE STATUS: FULL CODE DVT PPX: Th Lovenox Dispo: Pt stable. Plan for chest tubes out Saturday per CV surgery <Bonifacio Flores - Last Filed: 02/15/18 07:49> Attending Addendum - Attending Addendum Date/Time: 02/15/18 0852 I personally evaluated the patient and discussed the management with Dr. Flores I agree with the History, Examination, Assessment and Plan documented above with any addition or exceptions noted below. Continue care for now. S/P CABG. AFiB resolved now on sinus rhythm. <Vincent Bradley - Last Filed: 02/15/18 08:53>
--- NOTE | 2018-02-15 08:14 | RAD ---
SEMIUPRIGHT PORTABLE CHEST 1 VIEW: Date: 02/15/18 HISTORY: 67-year-old male with postop open heart. COMPARISON: 02/14/18. FINDINGS: The endotracheal tube has been removed. Right subclavian catheter and chest tubes remain in place. Mi nimal bibasilar pleural and parenchymal changes, probably postop. No pneumothorax or other acute proc ess. IMPRESSION: No significant new process. Persistent pleural and parenchymal changes in the bases. No pneumothorax. Continue short-term follow-up. POS: TC
[2018-02-15] MEDS ORDERED: Aspirin 325 MG TAB PO SCH (09:00)
[2018-02-15] MEDS: FLUoxetine HCl 20 MG CAP PO SCH (09:38)
[2018-02-15] MEDS: Lisinopril 10 MG TAB PO SCH (09:38)
[2018-02-15] MEDS ORDERED: Bisacodyl 5 MG TAB PO PRN (10:24)
[2018-02-15] MEDS ORDERED: Guaifenesin DM 100-10/5 ML UDCUP PO PRN (10:24)
[2018-02-15] MEDS ORDERED: Mineral Oil ENEMA PR PRN (10:24)
[2018-02-15] MEDS ORDERED: Bisacodyl 10 MG SUPP PR PRN (10:24)
[2018-02-15] MEDS ORDERED: Mag-Al 1200 mg/1200 mg/30 ML UDCUP PO PRN (10:24)
[2018-02-15] MEDS ORDERED: diphenhydrAMINE 25 MG CAP PO PRN (10:24)
[2018-02-15] MEDS ORDERED: Artificial Tears 18 DROP/0.9 ML EA EYE PRN (10:24)
[2018-02-15] MEDS ORDERED: Nitroglycerin 0.4 MG TAB (25 Tab Bottle) SL PRN (10:24)
[2018-02-15] MEDS ORDERED: Zolpidem Tartrate 5 MG TAB PO PRN (10:24)
[2018-02-15] MEDS ORDERED: Dextrose 5% in Water 1,000 ML IV PRN (10:39)
[2018-02-15] MEDS ORDERED: Dextrose 50% Abboject 50 ML SYRINGE SLOW IVP PRN (10:39)
--- NOTE | 2018-02-15 12:11 | PDOC.CTH ---
Cardiology Progress Note - Subjective He is complaining of a lot of pain around his chest. Not too much coming out of chest tubes. - Objective Vital Signs Temp Pulse Resp BP Pulse Ox 02/15/18 09:38 182/94 H 02/15/18 08:00 97.7 F 86 18 98 02/15/18 04:00 98.3 F Weight 248 lb 10.903 oz 02/14/18 02/15/18 02/16/18 06:59 06:59 06:59 Intake Total 306.2 1441.4 340 Output Total 400 840 210 Balance -93.8 601.4 130 - Physical Examination General/Neuro: alert & oriented x3, other: (in pain. ) Neck: no JVD present Lungs: CTA, unlabored respirations Heart: RRR Abdomen: NT/ND Extremities: + edema B (1+) - Telemetry Telemetry Rhythm: NSR. - Labs Result Diagrams: 02/15/18 04:14 02/15/18 04:14 Troponin/CKMB CK-MB (CK-2) 29.4 ng/mL (0-6.6) H* 02/14/18 04:34 Troponin I 8.200 ng/mL (< 0.028) H* 02/14/18 04:34 - Assessment/Plan 1. CAD s/p CABG 2. New onset afib, currently in sinus. 3. NSTEMI PLAN: - Continue post op care. - Pain control - Aspirin and statin for life - Continue ACEI. - Will add coreg.
[2018-02-15] MEDS: Carvedilol 3.125 MG TAB PO SCH (16:27)
[2018-02-15] MEDS: Furosemide 40 MG/4 ML VIAL SLOW IVP SCH (16:27)
[2018-02-15] MEDS: Atorvastatin Calcium 40 MG TAB PO SCH (20:59)
[2018-02-15] MEDS: Famotidine 20 MG TAB PO SCH (21:00)
[2018-02-15] MEDS: Insulin Regular 300 UNITS/3 ML VIAL SC PRN (22:18)
[2018-02-16 04:38] LABS: #Eosinphils 0.1 thou/uL (0.0-0.7); #Lymphocytes 1.7 thou/uL (1.20-3.40); #Monocytes 1.4 thou/uL (0.11-0.59); #Neutrophils 14.3 thou/uL (1.40-6.50); %Basophils 0.2 % (0.0-1.0); %Eosinophils 0.8 % (0.0-10.0); %Lymphocytes 9.5 % (21.0-51.0); %Neutrophils 81.4 % (42.0-75.0); Hemoglobin 12.5 g/dL (14.0-18.0); Mean Corpuscular HGB CONC 34.3 g/dL (32.0-36.0); Mean Corpuscular Volume 98.8 fl (80.0-94.0); Mean Platelet Volume 7.3 fL (7.4-10.4); Platelet Count 162 thou/uL (130-400); RBC Distribution Width 11.3 % (11.5-14.5); Red Blood Cell (RBC) Count 3.68 mill/uL (4.70-6.10); White Blood Cell (WBC) Count 17.5 thou/uL (4.8-10.8)
[2018-02-16 04:42] LABS: Anion Gap 10 mmol/L (10-20); BUN (Urea Nitrogen) 23 mg/dL (8.4-25.7); Calc. Creatinine Clearance 125 mL/min (70-130); Carbon Dioxide 22 mmol/L (23-31); Chloride 104 mmol/L (98-107); Estimated GFR-MDRD 81; Sodium 132 mmol/L (136-145)
[2018-02-16 04:43] LABS: Calcium 8.4 mg/dL (7.8-10.44); Glucose 164 mg/dL (80-115)
[2018-02-16] MEDS: Furosemide 40 MG/4 ML VIAL SLOW IVP SCH (05:30)
[2018-02-16] MEDS: Ketorolac Tromethamine 30 MG/ML VIAL IVP SCH ×4 (05:30→23:58)
[2018-02-16 06:10] VITALS: BMI 37.5
[2018-02-16] MEDS: Insulin Regular 300 UNITS/3 ML VIAL SC PRN ×2 (06:30→22:24)
[2018-02-16] MEDS: HYDROcodone/Acetaminophen 5/325 mg Tablet PO PRN ×3 (06:30→21:33)
--- NOTE | 2018-02-16 07:09 | PDOC.FM ---
- Subjective Subjective: This morning the patient denies chest soreness. He states he was able to eat yesterday without N/V/D. No shortness of breath or respiratory distress. Patient is eager to get chest tube out but understands the necessity. - Objective Vital Signs & Weight: Vital Signs (12 hours) Temp Pulse Resp BP BP Pulse Ox 02/16/18 04:00 98.5 F 83 20 137/73 94 L 02/16/18 02:10 93 L 02/16/18 00:00 98.2 F 88 22 H 168/89 H 93 L 02/15/18 20:20 98.3 F 86 24 H 147/71 H 92 L 02/15/18 20:00 98.3 F 86 24 H 147/71 H 92 L Weight Weight 118.796 kg Most Recent Monitor Data Heart Rate from ECG 90 NIBP 132/77 NIBP BP-Mean 124 Respiration from ECG 25 SpO2 92 I&O: 02/15/18 02/16/18 02/17/18 06:59 06:59 06:59 Intake Total 1441.4 1650 Output Total 840 2155 Balance 601.4 -505 Result Diagrams: 02/16/18 04:14 02/16/18 04:14 <Bonifacio lFores - Last Filed: 02/16/18 07:10> - Objective Vital Signs & Weight: Vital Signs (12 hours) Temp Pulse Resp BP Pulse Ox 02/16/18 07:55 97.5 F L 79 18 124/76 92 L 02/16/18 04:00 98.5 F 83 20 137/73 94 L 02/16/18 02:10 93 L 02/16/18 00:00 98.2 F 88 22 H 168/89 H 93 L Weight Weight 261 lb 14.4 oz Most Recent Monitor Data Heart Rate from ECG 90 NIBP 132/77 NIBP BP-Mean 124 Respiration from ECG 25 SpO2 92 I&O: 02/15/18 02/16/18 02/17/18 06:59 06:59 06:59 Intake Total 1441.4 1650 Output Total 840 2155 390 Balance 601.4 -505 -390 Result Diagrams: 02/16/18 04:14 02/16/18 04:14 <Vincent Bradley - Last Filed: 02/16/18 09:11> Phys Exam - Physical Examination Constitutional: NAD HEENT: PERRLA, moist MMs Respiratory: no wheezing, clear to auscultation bilateral Cardiovascular: RRR 3/6 systolic murmur, no apparent erythema at surgical site Gastrointestinal: soft, non-tender, no distention, positive bowel sounds Musculoskeletal: no edema, pulses present Neurological: non-focal, moves all 4 limbs Psychiatric: normal affect, A&O x 3 Skin: no rash, cap refill <2 seconds <Bonifacio Flores - Last Filed: 02/16/18 07:10> Dx/Plan (1) A-fib Code(s): I48.91 - UNSPECIFIED ATRIAL FIBRILLATION Status: Acute (2) Elevated blood sugar Code(s): R73.9 - HYPERGLYCEMIA, UNSPECIFIED Status: Acute (3) NSTEMI (non-ST elevated myocardial infarction) Code(s): I21.4 - NON-ST ELEVATION (NSTEMI) MYOCARDIAL INFARCTION Status: Acute (4) Transaminitis Code(s): R74.0 - NONSPEC ELEV OF LEVELS OF TRANSAMNS & LACTIC ACID DEHYDRGNSE Status: Acute (5) HTN (hypertension) Code(s): I10 - ESSENTIAL (PRIMARY) HYPERTENSION Status: Chronic (6) Mood disorder Code(s): F39 - UNSPECIFIED MOOD [AFFECTIVE] DISORDER Status: Chronic - Plan Plan: NSTEMI, POD 2 CABG 4V - Initial troponin was 0.516, second troponin was 3.188 --> 5.9, 8.7, 8.2 - Will continue medical management with asa and statin - Echo shows EF 55-60% - 4V CABG, patient tolerated procedure well - Appreciate CV surgery, Cardiology recs - 490 ml out of chest tube last 36 hours New onset Atrial Fibrillation with RVR, resolved - HR well controlled overnight, sinus on tele - 4 beats of vtach, resolved spontaneously HTN: - continue to monitor - controlled at this time Elevated blood sugar without diagnosis of DM - HgA1c 6.0 - SSI - accuchecks Mood disorder: - mood is WNL this AM, reported history of anger outbursts on admission - Cont home prozac CODE STATUS: FULL CODE DVT PPX: Th Lovenox Dispo: Pt stable. Plan for chest tubes out Saturday per CV surgery <Bonifacio Flores - Last Filed: 02/16/18 07:10> Attending Addendum - Attending Addendum Date/Time: 02/16/18 0910 I personally evaluated the patient and discussed the management with Dr. Flores. I agree with the History, Examination, Assessment and Plan documented above with any addition or exceptions noted below. continue Post CABG care and cardiac rehab. <Vincent Bradley D - Last Filed: 02/16/18 09:11>
[2018-02-16] MEDS: Lisinopril 10 MG TAB PO SCH (08:55)
[2018-02-16] MEDS: Famotidine 20 MG TAB PO SCH ×2 (08:55→21:33)
[2018-02-16] MEDS: Carvedilol 3.125 MG TAB PO SCH ×2 (08:55→17:18)
[2018-02-16] MEDS: Aspirin 325 mg Enteric Coated Tablet PO SCH (08:55)
[2018-02-16] MEDS: FLUoxetine HCl 20 MG CAP PO SCH (08:55)
[2018-02-16] MEDS: Magnesium 2 GM/NS 0.9% 100 ML 2 GM in Premix Bag 1 BAG IVPB SCH (10:36)
--- NOTE | 2018-02-16 12:00 | RAD ---
PORTABLE CHEST 1 VIEW: Date: 02/16/18 Time: 0924 hours HISTORY: CABG postop. FINDINGS/IMPRESSION: Comparison made with exam from previous day. No significant interval change is seen since the previous day's exam. POS: TC
--- NOTE | 2018-02-16 13:35 | PDOC.CTH ---
Cardiology Progress Note - Subjective He is doing better. Pain is better controlled. - Objective Vital Signs Temp Pulse Pulse Pulse Resp BP BP 02/16/18 11:32 97.5 F L 85 20 02/16/18 09:19 83 83 121/75 140/76 02/16/18 08:00 97.5 F L 79 18 02/16/18 07:55 97.5 F L 79 18 02/16/18 04:00 98.5 F 83 20 02/16/18 02:10 BP Pulse Ox 02/16/18 11:32 128/72 95 02/16/18 09:19 02/16/18 08:00 02/16/18 07:55 124/76 92 L 02/16/18 04:00 137/73 94 L 02/16/18 02:10 93 L Weight 261 lb 14.4 oz 02/15/18 02/16/18 02/17/18 06:59 06:59 06:59 Intake Total 1441.4 1650 Output Total 840 2155 390 Balance 601.4 -505 -390 - Physical Examination General/Neuro: alert & oriented x3, NAD Neck: no JVD present Lungs: CTA, unlabored respirations Heart: RRR Abdomen: NT/ND Extremities: other: (no edema.) - Telemetry Telemetry Rhythm: NSR - Labs Result Diagrams: 02/16/18 04:14 02/16/18 04:14 Troponin/CKMB CK-MB (CK-2) 29.4 ng/mL (0-6.6) H* 02/14/18 04:34 Troponin I 8.200 ng/mL (< 0.028) H* 02/14/18 04:34 - Assessment/Plan 1. CAD s/p CABG 2. New onset afib, currently in sinus. 3. NSTEMI PLAN: - Continue post op care. - Pain better controlled. - Aspirin and statin for life - Continue ACEI and coreg.
[2018-02-16] MEDS: Atorvastatin Calcium 40 MG TAB PO SCH (21:33)
[2018-02-17] MEDS: HYDROcodone/Acetaminophen 5/325 mg Tablet PO PRN (03:08)
[2018-02-17 05:07] LABS: #Eosinphils 0.7 thou/uL (0.0-0.7); #Monocytes 1.6 thou/uL (0.11-0.59); #Neutrophils 9.8 thou/uL (1.40-6.50); %Basophils 0.2 % (0.0-1.0); %Eosinophils 4.8 % (0.0-10.0); %Monocytes 11.1 % (0.0-10.0); Hemoglobin 12.3 g/dL (14.0-18.0); Mean Corpuscular HGB CONC 34.6 g/dL (32.0-36.0); Mean Corpuscular Hemoglobin 33.5 pg (27.0-31.0); Mean Corpuscular Volume 96.8 fl (80.0-94.0); Mean Platelet Volume 7.3 fL (7.4-10.4); Platelet Count 161 thou/uL (130-400); RBC Distribution Width 11.2 % (11.5-14.5); Red Blood Cell (RBC) Count 3.69 mill/uL (4.70-6.10)
[2018-02-17] MEDS: Ketorolac Tromethamine 30 MG/ML VIAL IVP SCH ×4 (05:14→23:20)
[2018-02-17 05:24] LABS: Anion Gap 9 mmol/L (10-20); BUN (Urea Nitrogen) 33 mg/dL (8.4-25.7); Calc. Creatinine Clearance 120 mL/min (70-130); Calcium 8.4 mg/dL (7.8-10.44); Carbon Dioxide 26 mmol/L (23-31); Chloride 99 mmol/L (98-107); Estimated GFR-MDRD 72; Glucose 101 mg/dL (80-115); Potassium 3.8 mmol/L (3.5-5.1); Sodium 130 mmol/L (136-145)
--- NOTE | 2018-02-17 06:14 | PDOC.FM ---
- Subjective Subjective: Patient is doing well this morning. He reports pain is well controlled. He has been up walking around without pain or difficulty. He is anticipating his discharge home and his only complaint is the feeling of constipation. Denies CP , SOB, dizziness, and N/V. - Objective MAR Reviewed: Yes Vital Signs & Weight: Vital Signs (12 hours) Temp Pulse Resp BP BP Pulse Ox 02/17/18 04:00 98.1 F 76 20 145/86 H 92 L 02/17/18 00:19 93 L 02/17/18 00:00 98.4 F 83 18 145/77 H 92 L 02/16/18 20:00 97.6 F 80 20 124/75 124/75 93 L Weight Weight 118.796 kg Most Recent Monitor Data Heart Rate from ECG 90 NIBP 132/77 NIBP BP-Mean 124 Respiration from ECG 25 SpO2 92 I&O: 02/15/18 02/16/18 02/17/18 06:59 06:59 06:59 Intake Total 1441.4 1650 Output Total 840 8445 1319 Balance 601.4 -783 -1315 Result Diagrams: 02/17/18 04:37 02/17/18 04:37 <Darshana Giang - Last Filed: 02/17/18 11:27> - Objective Vital Signs & Weight: Vital Signs (12 hours) Temp Pulse Pulse Pulse Resp BP BP 02/17/18 16:00 98.9 F 82 16 02/17/18 12:43 88 87 158/95 H 02/17/18 11:32 98.1 F 77 16 02/17/18 10:37 124/75 02/17/18 08:15 98.1 F 77 16 02/17/18 08:00 97.5 F L 73 20 124/75 BP BP Pulse Ox Pulse Ox Pulse Ox 02/17/18 16:00 145/77 H 92 L 02/17/18 12:43 160/81 H 95 95 02/17/18 11:32 140/74 93 L 02/17/18 10:37 02/17/18 08:15 93 L 02/17/18 08:00 118/74 91 L Weight Weight 117.571 kg Most Recent Monitor Data Heart Rate from ECG 90 NIBP 132/77 NIBP BP-Mean 124 Respiration from ECG 25 SpO2 92 I&O: 02/16/18 02/17/18 02/18/18 06:59 06:59 06:59 Intake Total 1650 Output Total 2155 1315 Balance -505 -1315 Result Diagrams: 02/17/18 04:37 02/17/18 04:37 <JuanGillian - Last Filed: 02/17/18 19:30> Phys Exam - Physical Examination Constitutional: NAD HEENT: moist MMs Neck: no nodes Respiratory: no wheezing, no rales Cardiovascular: RRR systolic murmur Gastrointestinal: soft, non-tender, no distention, positive bowel sounds Musculoskeletal: pulses present trace edema Neurological: normal sensation, moves all 4 limbs Psychiatric: normal affect, A&O x 3 Skin: cap refill <2 seconds <Darshana Giang - Last Filed: 02/17/18 11:27> Dx/Plan (1) Status post coronary artery bypass graft Code(s): Z95.1 - PRESENCE OF AORTOCORONARY BYPASS GRAFT Status: Acute (2) NSTEMI (non-ST elevated myocardial infarction) Code(s): I21.4 - NON-ST ELEVATION (NSTEMI) MYOCARDIAL INFARCTION Status: Acute (3) A-fib Code(s): I48.91 - UNSPECIFIED ATRIAL FIBRILLATION Status: Resolved (4) Elevated blood sugar Code(s): R73.9 - HYPERGLYCEMIA, UNSPECIFIED Status: Acute (5) Transaminitis Code(s): R74.0 - NONSPEC ELEV OF LEVELS OF TRANSAMNS & LACTIC ACID DEHYDRGNSE Status: Acute (6) HTN (hypertension) Code(s): I10 - ESSENTIAL (PRIMARY) HYPERTENSION Status: Chronic (7) Mood disorder Code(s): F39 - UNSPECIFIED MOOD [AFFECTIVE] DISORDER Status: Chronic - Plan Plan: NSTEMI, POD 3 CABG 4V - Initial troponin was 0.516, second troponin was 3.188 --> 5.9, 8.7, 8.2 - Will continue medical management with asa, statin and eliquis - Echo shows EF 55-60% - 4V CABG, patient tolerated procedure well - Appreciate CV surgery, Cardiology recs - chest tube removed yesterday, patient ambulating well, working with cardiac rehab. - Post-op pain controlled with [place] and Tramadol New onset Atrial Fibrillation with RVR, resolved - HR well controlled overnight, sinus on tele HTN: - continue to monitor - coreg has been increased to 6.25mg BID yesterday Elevated blood sugar without diagnosis of DM - HgA1c 6.0 - SSI - accuchecks Mood disorder: - mood is WNL this AM, reported history of anger outbursts on admission - Cont home prozac CODE STATUS: FULL CODE DVT PPX: Eliquis Dispo: Pt stable. Plan for d/c home tomorrow <Darshana Giang - Last Filed: 02/17/18 11:27> Attending Addendum - Attending Addendum Date/Time: 02/17/181928 I personally evaluated the patient and discussed the management with Dr. Giang. I agree with the History, Examination, Assessment and Plan documented above with any addition or exceptions noted below. The patient is doing well s/p cabg. Anticipate d/c tomorrow. Adjust bowel regimen for constipation. <Gillian Martinez - Last Filed: 02/17/18 19:30>
--- NOTE | 2018-02-17 08:51 | RAD ---
PORTABLE UPRIGHT FRONTAL CHEST RADIOGRAPH: DATE: 02/17/18. TIME: 7:31 a.m. COMPARISON: 02/16/18. HISTORY: Evaluate chest following open heart surgery. FINDINGS: Some midline sternotomy wires and mediastinal clips. Heart and mediastinal contours are stable. Sta ble right-sided vascular catheter. Mediastinal drainage catheter present on prior examination has been removed. IMPRESSION: Postoperative changes as described above. POS: TC
[2018-02-17] MEDS: Carvedilol 3.125 MG TAB PO SCH ×2 (10:37→18:38)
[2018-02-17] MEDS: Lisinopril 10 MG TAB PO SCH (10:37)
[2018-02-17] MEDS: FLUoxetine HCl 20 MG CAP PO SCH (10:38)
[2018-02-17] MEDS: Aspirin 325 mg Enteric Coated Tablet PO SCH (10:38)
[2018-02-17] MEDS: Famotidine 20 MG TAB PO SCH ×2 (10:38→20:44)
[2018-02-17] MEDS ORDERED: Aspirin 325 mg Enteric Coated Tablet PO SCH (10:46)
[2018-02-17] MEDS ORDERED: Aspirin 81 mg Enteric Coated Tablet PO SCH (11:00)
[2018-02-17] MEDS: Atorvastatin Calcium 40 MG TAB PO SCH (20:44)
--- NOTE | 2018-02-18 06:54 | PDOC.FM ---
- Subjective Subjective: Patient is doing well this morning. He reports he is ready to go home. His pain is well controlled, but does report some anxiety with his entire situation. This morning BP is elevated and this could be the reason. Overnight he had TERESA. He is ambulating, working with cardiac rehab, and voiding /stooling normally. - Objective MAR Reviewed: Yes Vital Signs & Weight: Vital Signs (12 hours) Temp Pulse Resp BP BP Pulse Ox 02/18/18 04:00 97.9 F 74 18 155/100 H 95 02/18/18 00:00 97.9 F 72 18 152/93 H 95 02/17/18 20:00 98.6 F 72 18 152/93 H 121/76 95 Weight Weight 116.891 kg Most Recent Monitor Data Heart Rate from ECG 90 NIBP 132/77 NIBP BP-Mean 124 Respiration from ECG 25 SpO2 92 I&O: 02/16/18 02/17/18 02/18/18 06:59 06:59 06:59 Intake Total 1650 351 Output Total 2155 1315 Balance -505 -1315 351 Result Diagrams: 02/17/18 04:37 02/17/18 04:37 <Darshana Giang - Last Filed: 02/18/18 09:17> - Objective Vital Signs & Weight: Vital Signs (12 hours) Temp Pulse Resp BP BP Pulse Ox 02/18/18 09:06 169/82 H 02/18/18 09:02 169/82 H 02/18/18 08:55 97.5 F L 74 16 96 02/18/18 08:00 97.5 F L 74 16 169/82 H 96 02/18/18 04:00 97.9 F 74 18 155/100 H 95 Weight Weight 116.891 kg Most Recent Monitor Data Heart Rate from ECG 90 NIBP 132/77 NIBP BP-Mean 124 Respiration from ECG 25 SpO2 92 I&O: 02/17/18 02/18/18 02/19/18 06:59 06:59 06:59 Intake Total 351 Output Total 1315 Balance -1315 351 Result Diagrams: 02/17/18 04:37 02/17/18 04:37 <Gillian Martinez - Last Filed: 02/18/18 14:34> Phys Exam - Physical Examination Constitutional: NAD Respiratory: no wheezing, no rales, clear to auscultation bilateral Cardiovascular: RRR, no significant murmur sternotomy incision c,d,i Gastrointestinal: soft Musculoskeletal: no edema, pulses present Neurological: moves all 4 limbs Psychiatric: normal affect, A&O x 3 <Darshana Giang - Last Filed: 02/18/18 09:17> Dx/Plan (1) Status post coronary artery bypass graft Code(s): Z95.1 - PRESENCE OF AORTOCORONARY BYPASS GRAFT Status: Acute (2) NSTEMI (non-ST elevated myocardial infarction) Code(s): I21.4 - NON-ST ELEVATION (NSTEMI) MYOCARDIAL INFARCTION Status: Acute (3) A-fib Code(s): I48.91 - UNSPECIFIED ATRIAL FIBRILLATION Status: Resolved (4) Elevated blood sugar Code(s): R73.9 - HYPERGLYCEMIA, UNSPECIFIED Status: Acute (5) Transaminitis Code(s): R74.0 - NONSPEC ELEV OF LEVELS OF TRANSAMNS & LACTIC ACID DEHYDRGNSE Status: Acute (6) HTN (hypertension) Code(s): I10 - ESSENTIAL (PRIMARY) HYPERTENSION Status: Chronic (7) Mood disorder Code(s): F39 - UNSPECIFIED MOOD [AFFECTIVE] DISORDER Status: Chronic - Plan Plan: NSTEMI, POD 4 CABG 4V - Initial troponin was 0.516, second troponin was 3.188 --> 5.9, 8.7, 8.2 - chest tube removed, patient ambulating well, working with cardiac rehab. - Post-op pain controlled with [place] and Tramadol - Continue ASA, statin, and eliquis New onset Atrial Fibrillation with RVR, resolved - HR well controlled overnight, sinus on tele HTN: - elevated this morning, could be due to pain or anxiety, continue to monitor - coreg 6.25mg BID - lisinopril 10mg daily Elevated blood sugar without diagnosis of DM - HgA1c 6.0 - SSI - accuchecks Mood disorder: - mood is WNL this AM, reported history of anger outbursts on admission - Cont home prozac CODE STATUS: FULL CODE DVT PPX: Eliquis Dispo: Pt stable. Plan for d/c home today <Darshana Giang - Last Filed: 02/18/18 09:17> Attending Addendum - Attending Addendum Date/Time: 02/18/18 1594 I personally evaluated the patient and discussed the management with Dr. Giang. I agree with the History, Examination, Assessment and Plan documented above with any addition or exceptions noted below. Pt doing well s/p CABG and will discharge home. <Gillian Martinez - Last Filed: 02/18/18 14:34>
--- NOTE | 2018-02-18 07:29 | DIS ---
DATE OF ADMISSION: 02/13/2018 DATE OF DISCHARGE: 02/18/2018 DIAGNOSES: 1. Non-ST elevation myocardial infarction. 2. Coronary artery disease. 3. Hypertension. PROCEDURES: 1. Cardiac catheterization. 2. Emergency coronary bypass grafting x4 -- 1) Left internal mammary artery to LAD, reverse saphen ous vein to diagonal, OM, PL. DESCRIPTION OF HOSPITAL STAY: Mr. Galeas was admitted with non-ST elevation myocardial infarction, underwent cardiac catheterization and subsequent urgent coronary artery bypass grafting. He has done well postoperatively with no rhythm disturbances - he did have atrial fibrillation preoperatively wh ich has remained in sinus postoperatively. At the time of discharge he is ambulatory, tolerating a r egular diet, having good bowel and bladder function. Incisions are clean and dry without evidence of infection. DISCHARGE MEDICATIONS: 1. Aspirin 81 mg every day. 2. Eliquis 5 mg b.i.d. for 3 months. 3. Lipitor 80 mg at bedtime. 4. Coreg 6.25 mg b.i.d. 5. Lisinopril 10 mg every day. 6. Prozac 20 mg daily. 7. [place] 5/325 1-2 q.6 hours p.r.n. pain. FOLLOWUP: Follow up is with me in 2 weeks, Dr. Hawley in a month.
[2018-02-18 08:01] VITALS: BP 169/82; TEMP 97.5
[2018-02-18] MEDS ORDERED: Apixaban 5 MG TAB PO SCH (09:00)
[2018-02-18] MEDS ORDERED: Carvedilol 6.25 MG TAB PO SCH (09:00)
[2018-02-18] MEDS ORDERED: Aspirin 81 mg Enteric Coated Tablet PO SCH (09:00)
[2018-02-18] MEDS: Lisinopril 10 MG TAB PO SCH (09:02)
[2018-02-18] MEDS: Famotidine 20 MG TAB PO SCH (09:02)
[2018-02-18] MEDS: FLUoxetine HCl 20 MG CAP PO SCH (09:02)
[2018-02-18] MEDS: Carvedilol 3.125 MG TAB PO SCH (09:08)
--- NOTE | 2018-02-18 18:08 | EKG ---
Test Reason : Blood Pressure : / mmHG Vent. Rate : 082 BPM Atrial Rate : 074 BPM P-R Int : 000 ms QRS Dur : 146 ms QT Int : 412 ms P-R-T Axes : 000 024 125 degrees QTc Int : 481 ms Atrial fibrillation Right bundle branch block T wave abnormality, consider lateral ischemia or digitalis effect Abnormal ECG When compared with ECG of 13-FEB-2018 22:05, (Unconfirmed) QT has lengthened Confirmed by Kim FORREST ([id number]) on 02/18/2018 6:07:51 PM Referred By: RUSH Confirmed By:Kim OFRREST
--- NOTE | 2018-02-18 18:08 | EKG ---
Test Reason : STAT Blood Pressure : / mmHG Vent. Rate : 060 BPM Atrial Rate : 258 BPM P-R Int : 000 ms QRS Dur : 142 ms QT Int : 420 ms P-R-T Axes : 000 021 107 degrees QTc Int : 420 ms Atrial fibrillation Right bundle branch block Abnormal ECG When compared with ECG of 13-FEB-2018 14:28, (Unconfirmed) Vent. rate has decreased BY 45 BPM QRS axis Shifted left T wave inversion no longer evident in Anterior leads T wave inversion more evident in Lateral leads QT has shortened Confirmed by Kim FORREST ([id number]) on 02/18/2018 6:07:44 PM Referred By: Confirmed By:Kim FORREST
--- NOTE | 2018-02-18 18:26 | EKG ---
Test Reason : POST-CABG Blood Pressure : / mmHG Vent. Rate : 072 BPM Atrial Rate : 072 BPM P-R Int : 162 ms QRS Dur : 142 ms QT Int : 454 ms P-R-T Axes : 055 013 076 degrees QTc Int : 497 ms Normal sinus rhythm Right bundle branch block Abnormal ECG When compared with ECG of 14-FEB-2018 06:37, (Unconfirmed) Sinus rhythm has replaced Atrial fibrillation T wave inversion no longer evident in Lateral leads Confirmed by Kim FORREST ([id number]) on 02/18/2018 6:26:16 PM Referred By: STEPHANIE Confirmed By:Kim FORREST
== END 2018-02-18 11:06 | disposition home or self-care (01) | DRG 234 ==
LOC: ERS 13:25 → 2SW 15:45 → OBSVTOIN 17:31 → 2NO 20:12 → CCU 02-14 11:30 → 2SE 02-15 16:03
PROVIDERS: ADMIT Family Medicine; ATTEND Family Medicine
PROC: 02100Z9 Bypass Coronary Artery, One Artery from Left Internal Mammary, Open Approach (ICD-10-PCS; principal; 2018-02-14)
PROC: 4A023N7 Measurement of Cardiac Sampling and Pressure, Left Heart, Percutaneous Approach (ICD-10-PCS; 2018-02-14)
PROC: 021209W Bypass Coronary Artery, Three Arteries from Aorta with Autologous Venous Tissue, Open Approach (ICD-10-PCS; 2018-02-14)
PROC: 06BQ0ZZ Excision of Left Saphenous Vein, Open Approach (ICD-10-PCS; 2018-02-14)
PROC: 5A1221Z Performance of Cardiac Output, Continuous (ICD-10-PCS; 2018-02-14)
PROC: B2111ZZ Fluoroscopy of Multiple Coronary Arteries using Low Osmolar Contrast (ICD-10-PCS; 2018-02-14)
DX: I21.4 Non-ST elevation (NSTEMI) myocardial infarction (principal); I25.10 Atherosclerotic heart disease of native coronary artery without angina pectoris; I10 Essential (primary) hypertension; Z79.82 Long term (current) use of aspirin; Z79.01 Long term (current) use of anticoagulants; R74.0 Nonspecific elevation of levels of transaminase and lactic acid dehydrogenase [LDH]; I48.91 Unspecified atrial fibrillation; R73.9 Hyperglycemia, unspecified; F39 Unspecified mood [affective] disorder; E66.9 Obesity, unspecified; Z82.49 Family history of ischemic heart disease and other diseases of the circulatory system; Z68.37 Body mass index [BMI] 37.0-37.9, adult; M19.90 Unspecified osteoarthritis, unspecified site
CPT/HCPCS: 36415; 36416; 71045; 71046; 71275; 80048; 80053; 80061; 82550; 82553; 82805; 83036; 83690; 83735; 83880; 84100; 84443; 84484; 85025; 85379; 85610; 85730; 86706; 86708; 86850; 86900; 86901; 87340; 87521; 93005; 93010; 93306; 93458; 93798; 94002; 94150; 94760; 96361; 96374; 96376; 99152; A4216; C1769; J0282; J0360; J1644; J1650; J1815; J1885; J1940; J2001; J2250; J2270; J2405; J2440; J2704; J2720; J3010; J3370; J3475; J3480; J7050; J7070; P9045; S0028

== ENCOUNTER 2019-01-15 02:28 | Emergency (ER) | payer MEDICARE ==
--- NOTE | 2019-01-15 07:51 | RAD ---
RIGHT FOREARM 2 VIEWS: HISTORY: Trauma to forearm. FINDINGS: There are no signs of fracture or dislocation. 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 IMPRESSION: No evidence of fracture. No radiopaque foreign bodies. POS: [facility]
== END 2019-01-15 03:20 | disposition home or self-care (01) ==
LOC: ERS 02:28
DX: S50.11XA Contusion of right forearm, initial encounter (principal); I10 Essential (primary) hypertension; I48.91 Unspecified atrial fibrillation; M19.90 Unspecified osteoarthritis, unspecified site; F17.220 Nicotine dependence, chewing tobacco, uncomplicated; Z79.891 Long term (current) use of opiate analgesic; Z79.899 Other long term (current) drug therapy; W20.8XXA Other cause of strike by thrown, projected or falling object, initial encounter

== ENCOUNTER 2019-05-23 20:30 | Outpatient (CLI) | payer MEDICARE | END 2019-05-23 20:31 | disposition home or self-care (01) | LOC: SLEEPLAB 20:30 | PROVIDERS: ATTEND Internal Medicine Critical Care Medicine | DX: G47.33 Obstructive sleep apnea (adult) (pediatric) (principal); I25.10 Atherosclerotic heart disease of native coronary artery without angina pectoris; I10 Essential (primary) hypertension | CPT/HCPCS: 95810 ==

== ENCOUNTER 2019-06-26 20:30 | Outpatient (CLI) | payer MEDICARE | END 2019-06-26 20:31 | disposition home or self-care (01) | LOC: SLEEPLAB 20:30 | PROVIDERS: ATTEND Internal Medicine Critical Care Medicine | DX: G47.33 Obstructive sleep apnea (adult) (pediatric) (principal); R06.83 Snoring; G47.10 Hypersomnia, unspecified; E66.9 Obesity, unspecified; Z68.36 Body mass index [BMI] 36.0-36.9, adult | CPT/HCPCS: 95811 ==

== ENCOUNTER 2020-07-05 22:42 | Emergency (ER) | payer MEDICARE ==
--- NOTE | 2020-07-05 23:33 | RAD ---
XR Hand Rt 3 View STANDARD: 07/05/2020 11:13 PM CLINICAL INDICATION: Dog bite to the right hand COMPARISON: None. FINDINGS: Bones: No acute osseous abnormality. Joints: Joint spaces are preserved. Soft Tissue: There is soft tissue swelling of the dorsal aspect of the right hand. No radiopaque fore ign body is evident. IMPRESSION: No acute osseous abnormality..
== END 2020-07-05 23:51 | disposition home or self-care (01) ==
LOC: ERS 22:42
DX: S61.451A Open bite of right hand, initial encounter (principal); S61.411A Laceration without foreign body of right hand, initial encounter; L03.113 Cellulitis of right upper limb; W54.0XXA Bitten by dog, initial encounter

== ENCOUNTER 2021-02-13 12:05 | Emergency (ER) | payer MEDICARE ==
[2021-02-13 13:07] LABS: #Eosinphils 0.4 thou/uL (0.0-0.7); #Lymphocytes 1.7 thou/uL (1.20-3.40); #Neutrophils 6.1 thou/uL (1.40-6.50); %Basophils 0.4 % (0.0-1.0); %Eosinophils 4.7 % (0.0-10.0); %Lymphocytes 18.2 % (21.0-51.0); %Monocytes 10.9 % (0.0-10.0); %Neutrophils 65.8 % (42.0-75.0); Hemoglobin 16.1 g/dL (14.0-18.0); Mean Corpuscular HGB CONC 33.4 g/dL (32.0-36.0); Mean Corpuscular Hemoglobin 32.8 pg (27.0-31.0); Mean Corpuscular Volume 98.3 fL (78.0-98.0); Mean Platelet Volume 7.4 fL (7.4-10.4); Platelet Count 226 thou/uL (130-400); RBC Distribution Width 11.4 % (11.5-14.5); White Blood Cell (WBC) Count 9.3 thou/uL (4.8-10.8)
[2021-02-13 13:30] LABS: ALT (SGPT) 27 U/L (8-55); AST (SGOT) 29 U/L (5-34); Albumin 3.7 g/dL (3.4-4.8); Alkaline Phosphatase 117 U/L (40-110); Anion Gap 12 mmol/L (10-20); BUN (Urea Nitrogen) 19 mg/dL (8.4-25.7); Bilirubin, Total 0.4 mg/dL (0.2-1.2); Calc. Creatinine Clearance 0 mL/min (70-130); Calcium 8.8 mg/dL (7.8-10.44); Carbon Dioxide 22 mmol/L (23-31); Chloride 107 mmol/L (98-107); Globulin 3.7 g/dL (2.4-3.5); Glucose 112 mg/dL (80-115); Potassium 4.7 mmol/L (3.5-5.1); Protein, Total 7.4 g/dL (5.8-8.1); Sodium 136 mmol/L (136-145)
[2021-02-13] MEDS ORDERED: Fluorescein Opthalmic Strip ONE (13:30)
[2021-02-13] MEDS ORDERED: Proparacaine 0.5% Opth 15 ML BOT ONE (13:30)
== END 2021-02-13 14:09 | disposition home or self-care (01) ==
LOC: ERS 12:05
DX: S05.01XA Injury of conjunctiva and corneal abrasion without foreign body, right eye, initial encounter (principal); H11.421 Conjunctival edema, right eye; K04.7 Periapical abscess without sinus; M19.90 Unspecified osteoarthritis, unspecified site; I10 Essential (primary) hypertension; I48.91 Unspecified atrial fibrillation; F17.220 Nicotine dependence, chewing tobacco, uncomplicated; Z79.899 Other long term (current) drug therapy; X58.XXXA Exposure to other specified factors, initial encounter
CPT/HCPCS: 36415; 80053; 85025; 99283

== ENCOUNTER 2023-01-24 16:30 | Outpatient (CLI) | payer MEDICARE | END 2023-01-24 16:31 | disposition home or self-care (01) | LOC: BICRAD 16:30 | PROVIDERS: ATTEND Student in an Organized Health Care Education/Training Program | DX: M17.11 Unilateral primary osteoarthritis, right knee (principal) ==

== ENCOUNTER 2025-07-08 14:13 | Outpatient (CLI) | payer MEDICARE | END 2025-07-08 14:14 | disposition home or self-care (01) | LOC: CT 14:13 | PROVIDERS: ATTEND Physician Assistant | DX: Z86.61 Personal history of infections of the central nervous system (principal); R90.82 White matter disease, unspecified; Z98.890 Other specified postprocedural states | CPT/HCPCS: 70450 ==

== ENCOUNTER 2025-08-10 13:54 | Outpatient (CLI) | payer MEDICARE | END 2025-08-10 13:55 | disposition home or self-care (01) | LOC: MRI 13:54 | PROVIDERS: ATTEND Surgery | DX: G93.6 Cerebral edema (principal); G93.89 Other specified disorders of brain; Z86.61 Personal history of infections of the central nervous system | CPT/HCPCS: 36415; 70553; 76376; 82565 ==